=== PATIENT | female | born 1940 | race Caucasian/White ===

== ENCOUNTER 2016-11-01 07:57 | Day surgery (SDC) | payer MEDICARE, OTHER ==
[~2016-11-01] VITALS: Ht 154.9 cm; Wt 74.4 kg
--- NOTE | 2016-11-01 07:21 | PCM.HPANE ---
Patient Data Surgeon Admitting Provider: Attending Provider:Ton Mcguire MD Primary Care Physician:Steven Hurd MD Other Provider:Zeeshan Galloway Anesthesia Reason for Visit End Stage Renal Failure Ht/WT & BMI Height (Feet): 5 Height (Inches): 1 Weight (Kilograms): 73.164 Body Mass Index 30.00 Allergies Coded Allergies: No Known Allergies (Verified , 10/27/16) Past Anesthesia History Anesthesia History: Denies:: Anesthesia Reactions, Malignant Hyperthermia Diabetes History Hx Diabetes?: Yes Type of Diabetes: Type II Glycemic Control: Oral Medication MRSA MRSA: No Medications Hypertension Medication: Yes (SPIRONALACTONE) Active Scripts Sevelamer Carbonate (Renvela)800 Mg Chmwmi105 Mg PO TID 90 Days Prov:Quinton Jones DO 07/27/16 Vit B Cmplx 3/FA/Vit C/Biotin (Nephro-Valentina Rx)1 Each Tablet1 Tablet PO DAILY # 30 Prov:Quinton Jones DO 07/27/16 Reported Medications Levothyroxine 75 Mcg Qlxkid30 Mcg PO DAILY #30 11/01/16 Carvedilol 12.5 Mg Roywqs85.5 Mg PO BID #60 11/01/16 Discontinued Reported Medications Spironolactone 25 Mg Nfbsub54 Mg PO DAILY #30 TABLET Ref 0 10/27/16 Sodium Bicarbonate 650 Mg Sprdfr717 Mg PO TID 10/27/16 Furosemide (Lasix)20 Mg Yjaxdo93 Mg PO DAILY 30 Days Ref 0 10/27/16 Carvedilol 12.5 Mg Tablet6.25 Mg PO BID Ref 0 08/11/16 Glipizide 5 Mg Tablet2.5 Mg PO BIDWM 07/22/16 Sennosides (Senna)8.6 Mg Tablet8.6 Mg PO BID 08/11/16 Polyethylene Glycol 3350 (Miralax)17 Gm Powd.pack17 Gm PO BID 08/11/16 Losartan Potassium 25 Mg Fottel17 Mg PO DAILY 08/11/16 Discontinued Scripts Levothyroxine 50 Mcg Zuehbd23 Mcg PO 0630 30 Days Ref 6 Prov:Sandeep Chase MD 05/10/16 Sodium Bicarbonate 325 Mg Bqjpff603 Mg PO TID #90 TABLET Ref 6 Prov:Sandeep Chase MD 05/10/16 Citalopram Hydrobromide (Celexa)20 Mg Ovogda06 Mg PO DAILY #30 TABLET Ref 3 Prov:Sandeep Chase MD 05/10/16 History History of ENT Problems?: Yes HEENT History: Positive for:: Cataracts (S/P EXTRACTION) Denies:: Dysphagia Sinus Problem Hx of Heart Problems?: Yes Cardiovascular History: Positive for:: Atrial Fibrillation (12/2007) Congestive Heart Failure (CARDIOMYOPATHY) Hypertension Irregular Heartbeat (corrected itself per pt.) Valvular 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) Denies:: Cardiac Surgery Chest Pain Edema Heart Murmur (ECHO 06/2016 EF 30-35%) Pacemaker Other Cardiac History: ANEMIA OF CHRONIC DISEASE Hx of Respiratory Problem?: Yes Respiratory History: Positive for:: Dyspnea Pneumonia (HCAP 06/2016) Denies:: Asthma COPD Chest Surgery Emphysema Hemoptysis Tuberculosis Use of C-PAP Machine Hx Neurologic Problems?: Yes Neurological History: Positive for:: Dementia (multi-infract dementia, without behavioral disturbance) Denies:: Alzheimer's Disease CVA Dizziness Headaches Parkinson's Disease Seizures Hx of GI Problems?: No Gastrointestinal History: Denies:: Diverticulitis Gastrointestinal Bleeding Heartburn Hepatitis Hiatal Hernia Rectal Bleeding Hx of Problems?: Yes Genitourinary History: Positive for:: HX of Hemodialysis (ESRD ON DIALYSIS VIA TUNNELED CATH ESRD/DIALYSIS ACCESS=CURRENT PROBLEM) Urinary Tract Infection (HX OF) Denies:: Kidney Stones Female Hx: Denies:: Currently Endometriosis Pelvic Inflammatory Problems with Breasts? Skin History: Denies:: History Skin Disorders? Pressure Ulcers Hx Musculoskeletal Problems?: No Musculoskeletal History: Denies:: Back Injury Joint Replacement Musculoskeletal Trauma Hx of Psycho/Social Problems?: Yes Psycho Social History: Positive for:: Anxiety Hx Depression Denies:: Bipolar Disorder Suicide Attempt Hx Surgeries?: Yes (CATARACT,TUNNELED IJ CATH) Hx Any Other Health Problems?: Yes Other History: Positive for:: Hospitalization (irregular heart beat) Thyroid Disease (hypothyroidism) Denies:: Cancer Endocrine Disease History Blood Transfusions: Denies:: Blood Transfuse Reaction Blood Transfusions Hx Diabetes: Yes Hx Alcohol Use: NoHx Substance Use: No Smoking Status: Never Smoker Have You Smoked inLast 12 mo: No Stop/Bang S-Snoring: Do You Snore Loudly: No T-Tired: feel tired, fatigued: Yes O-Obsered: Observed not breath: No P-Blood Pressure: treated: Yes B- Body Mass Index > 35 kg/m2: No A- Age over 50: Yes N- Neck Large Circumference: No G- Gender Male: No ANNE Total Score: 3 Risk Assessment Category Category 1A: Patient has history of documented sleep apnea, and HAS NOT received any narcotic, sedative or anesthesia administration during this stay. Category 1B: Patient has history of documented sleep apnea, and HAS received any narcotic , sedative or anesthesia administration during this stay Category 2: Patient has SUSPECTED Obstructive Sleep Apnea, and HAS received any narcotic , sedative or anesthesia administration during this stay. Category 3: Patient has SUSPECTED Obstructive Sleep Apnea and HAS NOT received narcotic, sedative or anesthesia administration during this stay. Category 4: Outpatient in Procedural Areas with known sleep apnea or who screen positive for High Risk via the STOP/BANG questionnaire. Exam Exam General Appearance: Alert, Oriented X3 (poor historian), Cooperative HEENT/AIRWAY: MP 2, Neck Movement (from), Mouth Opening (No upper teeth, some lower teeth, opening: WNL) Lungs: Clear to Auscultation Heart: Exam Unremarkable Plan Impression Patient chart reviewed, patient interviewed and anesthestic plan with risks, benefits, and alternatives discussed, and informed consent obtained. ASA Physical Status: ASA3 Severe Disease Anesthetic Plan: GA Bene/Risks/Altern/Consents: Yes HP Complete Prior to Induction: Yes Yonas Terrell MD Nov 01, 2016 07:21
[~2016-11-01 07:57] MED LIST: CITA20TA PO; CeFAZolin 2 Gm/50 mL D5W IV Premix IV ONE; LEVO50TA6 PO; Lactated Ringer's 1,000 ML IV ONE; SEVE800T7 PO; SODI325T PO; SODI650T PO; SPIR25TA3 PO; VIT1TABL50 PO
[2016-11-01] MEDS ORDERED: Propofol 10,000 mCg/mL 20 mL Inj ONE (07:58)
[2016-11-01] MEDS ORDERED: fentaNYL-PF 50 mCg/mL 2 mL Inj ONE (07:58)
[2016-11-01] MEDS ORDERED: 0.9% Sodium Chloride 500 ML IV ONE (08:09)
[2016-11-01] MEDS ORDERED: CARV12.52 PO (08:14)
[2016-11-01] MEDS ORDERED: LEVO75TA4 PO (08:15)
[2016-11-01 08:26] VITALS: BP 158/55; PULSE 60; RESP 16; O2SAT 95
[2016-11-01] MEDS ORDERED: Insulin LISPRO 300 Unit/3 mL Inj SUBQ ONE ×2 (09:11→09:35)
[2016-11-01] MEDS ORDERED: Lactated Ringer's 1,000 ML IV SCH (09:52)
[2016-11-01] MEDS ORDERED: Lactated Ringer's 500 ML IV PRN (09:52)
[2016-11-01] MEDS ORDERED: hydrALAZINE 20 mg/mL Inj IVPUSH PRN (09:55)
[2016-11-01] MEDS ORDERED: fentaNYL-PF 50 mCg/mL 2 mL Inj IVPUSH PRN (09:55)
[2016-11-01] MEDS ORDERED: Atropine 0.4 mg/mL Inj IVPUSH PRN (09:55)
[2016-11-01] MEDS ORDERED: Labetalol 5 mg/mL 4 mL Inj IV PRN (09:55)
[2016-11-01] MEDS ORDERED: HYDROmorphone 1 mg/mL Inj IVPUSH PRN (09:55)
[2016-11-01] MEDS ORDERED: Phenylephrine 10,000 mCg/mL Inj IVPUSH PRN (09:55)
[2016-11-01] MEDS ORDERED: Ondansetron 2 mg/mL 2 mL Inj IVPUSH PRN (09:55)
[2016-11-01] MEDS ORDERED: EPHEDrine Sulfate 50 mg/mL Inj IVPUSH PRN (09:55)
[2016-11-01] MEDS ORDERED: Lidocaine PF 1% 30 mL Inj INJ ONE (10:18)
[2016-11-01] MEDS ORDERED: Bupivacaine-MPF 0.5% 30 mL Inj INFILTRATE ONE (10:18)
[2016-11-01] MEDS ORDERED: Heparin 5,000 Unit/mL Inj IR ONE (10:18)
[2016-11-01 11:34] VITALS: BP 99/44; PULSE 61; RESP 14; O2SAT 93
--- NOTE | 2016-11-01 12:01 | PCM.ANEP1 ---
Post Anesthesia Phase 1 PACU Phase 1 Assessment Vital Signs Vital Signs Date Time Temp Pulse Resp B/P Pulse Ox O2 Delivery O2 Flow Rate FiO2 11/01/16 11:34 36.0 61 14 99/44 93 Room Air 11/01/16 08:30 Supplement Oxygen 11/01/16 08:26 36.2 60 16 158/55 95 Room Air Anesthetic Administered: MAC Level of Alertness: Awake, talking MONTELONGO's with Equal Strength: Yes Pain: No Nausea or Vomiting: No Oxygen Delivery: Room Air Lungs: Normal Air Movement Yonas Terrell MD Nov 01, 2016 12:01
[2016-11-01 12:11] VITALS: BP 141/49; PULSE 55; RESP 14; O2SAT 98
[2016-11-01] MEDS ORDERED: HYDROcodone-APAP 5-325 mg Tablet PO PRN (12:15)
[2016-11-01] MEDS ORDERED: Insulin LISPRO 300 Unit/3 mL Inj ONE (13:46)
--- NOTE | 2016-11-01 14:17 | OP ---
[address] [address] OPERATIVE REPORT PATIENT: PEDRO DAY : 1940 MR#: [id number] ADMIT: 11/01/2016 JOB ID: [id number] DATE OF SURGERY: 11/01/2016 PREOPERATIVE DIAGNOSIS(ES): End-stage renal failure. POSTOPERATIVE DIAGNOSIS(ES): End-stage renal failure. PROCEDURE: Right brachiocephalic arteriovenous fistula. SURGEON: Ton Mcguire MD. GROUP SALES REPRESENTATIVE: Prasanna Mock PA-C. INDICATIONS: A 76-year-old female who has end-stage renal failure who is being dialyzed through a tunneled catheter. She is right-handed. She has never had a previous fistula or graft. Her bilateral upper extremity venous and arterial duplex exam demonstrated no significance of significant arterial disease. However, she had small forearm veins bilaterally, and by size, her upper arm veins also were inadequate but her best veins were in her right upper arm and it was elected to proceed with either a right brachiocephalic or brachial basilic AV fistula. FINDINGS: In the antecubital fossa the cephalic vein was of adequate size. At the conclusion of the procedure, she had an easily palpable thrill in the vein and a three-component Doppler signal in her right radial artery. DESCRIPTION OF PROCEDURE: At the beginning and end of the operation, SCOAP checklist was completed. She received deep sedation and local anesthesia with 1% lidocaine and 0.5% bupivacaine. Using ChloraPrep, her right upper extremity was prepped and draped in usual fashion. An antecubital incision was designed and incised. With sharp dissection the cephalic vein, which was right around 3 mm, was exposed and distally there was a branch point. The brachial artery was then exposed and controlled proximally and distally with vessel loops and side branches clipped. The vein was divided beyond its distal branch point with applying double clips distally. It was sharply incised. The two branches were opened to create a common lumen and the vein was flushed with heparinized saline and there was no resistance to flushing. The artery was then opened and flushed proximally and distally with heparinized saline. The distal end of the vein was then fashioned to create a good, and the anastomosis was completed with running 6-0 Prolene sutures. After completing the anastomosis, the artery was backflushed into the vein, followed by forward flushing into the vein and then forward flow to the hand with results as stated above. There was an easily appreciable thrill. There was no bleeding from the anastomosis or from the operative wound. The wound was closed with running subcutaneous 3-0 Vicryl, subcuticular 4-0 and Dermabond. Estimated blood loss 10 cc. No apparent complications. The final sponge, needle and instrument counts were announced as correct. The patient was returned to the recovery room in stable condition. Critical assistance was provided by Prasanna Mock PA-C.
--- NOTE | 2016-11-01 14:47 | PCM.ANEP2 ---
Post Anesthesia Evaluation ASA/CMS Post Anesthesia VS in Patient's Normal Range?: Yes Resp Stable; Airway Patent?: Yes CV Function & Hydration Stable: Yes Mental Status Recovered?: Yes Pain control Satisfactory?: Yes N/V Control Satisfactory?: Yes Yonas Terrell MD Nov 01, 2016 14:47
[2017-01-31] MEDS ORDERED: ERGO2000 PO (17:09)
[2017-01-31] MEDS ORDERED: LEVO50CA2 PO (17:09)
== END 2016-11-01 23:59 | disposition home or self-care (01) ==
LOC: SAS 07:57
PROVIDERS: ATTEND Surgery
DX: N18.6 End stage renal disease (principal); I13.2 Hypertensive heart and chronic kidney disease with heart failure and with stage 5 chronic kidney disease, or end stage renal disease; I50.23 Acute on chronic systolic (congestive) heart failure; E03.9 Hypothyroidism, unspecified; E11.21 Type 2 diabetes mellitus with diabetic nephropathy; F32.9 Major depressive disorder, single episode, unspecified; D64.9 Anemia, unspecified; F01.50 Vascular dementia, unspecified severity, without behavioral disturbance, psychotic disturbance, mood disturbance, and anxiety; I42.9 Cardiomyopathy, unspecified; Z79.84 Long term (current) use of oral hypoglycemic drugs; Z99.2 Dependence on renal dialysis
CPT/HCPCS: 36415; 36818; 84132; J0690; J1644; J1815; J2250; J7030

== ENCOUNTER 2016-11-11 08:04 | Day surgery (SDC) | payer MEDICARE, OTHER ==
[~2016-11-11] VITALS: Ht 154.9 cm; Wt 75.0 kg
[~2016-11-11 08:04] MED LIST changes: +CARV12.52 PO; -CITA20TA PO; -CeFAZolin 2 Gm/50 mL D5W IV Premix IV ONE; -LEVO50TA6 PO; +LEVO75TA4 PO; -Lactated Ringer's 1,000 ML IV ONE; -SODI325T PO; -SODI650T PO; -SPIR25TA3 PO
[2016-11-11 08:36] LABS: BASOPHILS % (AUTO) 0.3 % (0-3); EOSINOPHILS % (AUTO) 7.4 % (0-5); MONOCYTES % (AUTO) 7.1 % (4-12); Mean Corpuscular Hemoglobin 31.6 pg (27.0-35.0); Mean Corpuscular Volume 97.5 fL (81-100); NEUTROPHILS % (AUTO) 64.2 % (40-74); Platelet Count 154 bil/L (150-400)
[2016-11-11 08:45] VITALS: BP 146/42; PULSE 70; RESP 19; O2SAT 95
[2016-11-11 08:59] LABS: INR 0.97 ratio
[2016-11-11] MEDS ORDERED: CeFAZolin 2 Gm/50 mL D5W Duplex Bag IV ONE ×2 (09:12→09:13)
[2016-11-11] MEDS ORDERED: 0.9% Sodium Chloride 500 ML ONE (09:12)
[2016-11-11] MEDS ORDERED: Heparin 1,000 Unit/mL 10 mL Inj ONE (10:11)
[2016-11-11] MEDS ORDERED: Heparin 5,000 Units/500 mL NS Premix IV ONE (10:11)
[2016-11-11] MEDS ORDERED: fentaNYL-PF 50 mCg/mL 2 mL Inj ONE (10:21)
[2016-11-11 11:00] VITALS: BP 121/48; PULSE 65; RESP 18; RESP 19; O2SAT 94
[2016-11-11 11:15] VITALS: BP 132/45; PULSE 61; PULSE 65; RESP 18; RESP 19; O2SAT 94
[2016-11-11 11:30] VITALS: BP 144/47; PULSE 60; PULSE 65; RESP 18; RESP 19; O2SAT 94
[2016-11-11 12:00] VITALS: BP 147/48; PULSE 59; RESP 18; RESP 19; O2SAT 94
[2016-11-11 12:30] VITALS: BP_SYST 164; BP_SYST 167; BP_DIAS 48; PULSE 60; RESP 18; RESP 19; O2SAT 94
--- NOTE | 2016-11-11 12:59 | NUR ---
DIALYSIS TUNNELED CATHETER DRESSING REINFORCED, NO BLEEDING NOTED FROM ENTRY SITE. DISCHARGE INSTRUCTIONS REVIEWED WITH PATIENT AND SHE IS DISCHARGED AMBULATORY USING HER WALKER, ORANGE JUICE SHE WAITS FOR HER DAUGHTER IN THE WAITING ROOM.
--- NOTE | 2016-11-11 16:53 | DRSVH ---
PROCEDURE: CV REPLACE CATH TUNLD 1. Conscious sedation for 30 minutes. 2. Right internal jugular vein tunneled hemodialysis catheter replacement. 3. Fluoroscopic guidance for catheter placement. INDICATIONS: ESRD TECHNIQUE: The indications, alternatives, benefits, risks, and complications of the procedure were e xplained to the patient and any family members present. Informed written consent was obtained and pl aced in the chart. The patient was brought to the angiography suite, and conscious sedation was admi nistered intravenously by half-way staff, while continuous cardiorespiratory monitoring was pe rformed. Maximum sterile barrier technique was employed per standard protocol, including hand hygiene, cap, ma sk, sterile gown and gloves, and 2% chlorhexidine. . 1% lidocaine was used for local anaesthesia. Under fluoroscopic guidance, 2 Glidewire were advanced with the tip in the IVC. Blunt dissection was used to remove the existing hemodialysis catheter. A ne w catheter was advanced with the tip in the right atrium. Adequate flow was obtained through both lum ens of the catheter. The catheter was fastened to the skin with Ticron. Both lumens were flushed wit h heparinized saline. The patient tolerated the procedure without difficulty and was in stable condition at the conclusion of the procedure. COMPARISON: [facility], XA, CV REPLACE CATH ARMINDALD, 08/11/2016, 12:13. FINDINGS: Final spot fluoroscopic image (which was not saved) demonstrates a right internal jugular vein hemodi alysis catheter with the tip in the right atrium. IMPRESSION: Right internal jugular vein tunneled hemodialysis replacement using fluoroscopic guidance. Dictated by: Salud Ward M.D. on 11/11/2016 at 16:52 Approved by: Salud Ward M.D. on 11/11/2016 at 16:52
[2017-01-31] MEDS ORDERED: ERGO2000 PO (17:09)
[2017-01-31] MEDS ORDERED: LEVO50CA2 PO (17:09)
== END 2016-11-11 23:59 | disposition home or self-care (01) ==
LOC: SOUO 08:04
PROVIDERS: ATTEND Radiology Vascular & Interventional Radiology
DX: Z49.01 Encounter for fitting and adjustment of extracorporeal dialysis catheter (principal); I13.2 Hypertensive heart and chronic kidney disease with heart failure and with stage 5 chronic kidney disease, or end stage renal disease; E11.22 Type 2 diabetes mellitus with diabetic chronic kidney disease; E11.21 Type 2 diabetes mellitus with diabetic nephropathy; N18.6 End stage renal disease; I50.22 Chronic systolic (congestive) heart failure; F01.50 Vascular dementia, unspecified severity, without behavioral disturbance, psychotic disturbance, mood disturbance, and anxiety; Z79.84 Long term (current) use of oral hypoglycemic drugs
CPT/HCPCS: 36415; 36581; 77001; 80048; 85025; 85610; 99152; 99153; C1750; C1769; J1644; J2250; J3010

== ENCOUNTER 2016-12-13 01:08 | Day surgery (SDC) | payer MEDICARE, OTHER ==
[~2016-12-13] VITALS: Ht 154.9 cm; Wt 75.0 kg
[~2016-12-13 01:08] MED LIST changes: -CARV12.52 PO
[2016-12-13] MEDS ORDERED: FURO40TA4 PO (09:08)
[2016-12-13] MEDS ORDERED: CITA20TA11 PO (09:08)
[2016-12-13] MEDS ORDERED: CARV6.252 PO (09:08)
[2016-12-13] MEDS ORDERED: GLIP2.5T2 PO (09:09)
[2016-12-13] MEDS ORDERED: SPIR25TA3 PO (09:11)
[2016-12-13] MEDS ORDERED: CINA30TA PO (09:11)
[2016-12-13] MEDS ORDERED: SODI650T PO (09:11)
[2016-12-13] MEDS ORDERED: LEVO50CA2 PO (09:11)
[2016-12-13 09:30] VITALS: BP 181/58; PULSE 69; RESP 16; O2SAT 97
--- NOTE | 2016-12-13 09:30 | NUR ---
ADMISSION NOTE FEMALE PT ADMITTED FOR TUNNEL CATH EXCHANGE. DISCUSSED PLAN OF CARE WITH PT . SEE ADMIT AND FLOW SHEET
[2016-12-13 10:21] LABS: INR 0.95 ratio
[2016-12-13] MEDS ORDERED: 0.9% Sodium Chloride 1,000 ML ONE (10:35)
[2016-12-13] MEDS ORDERED: CeFAZolin 1 Gm/50 mL D5W Duplex Bag IV ONE (10:46)
[2016-12-13] MEDS ORDERED: fentaNYL-PF 50 mCg/mL 2 mL Inj ONE (11:19)
[2016-12-13] MEDS ORDERED: Heparin 5,000 Units/500 mL NS Premix IV ONE (11:19)
[2016-12-13] MEDS ORDERED: Heparin 1,000 Unit/mL 10 mL Inj ONE (11:39)
[2016-12-13 12:00] VITALS: BP 151/39; PULSE 64; RESP 14; O2SAT 94
--- NOTE | 2016-12-13 12:00 | NUR ---
POST PROCEDURE NOTE RETURNED FROM MARZIPAN MOLDER. SEE FLOW SHEET
[2016-12-13 12:15] VITALS: BP 139/40; PULSE 68; RESP 16; O2SAT 92
[2016-12-13 12:30] VITALS: BP 165/47; PULSE 64; RESP 18; O2SAT 98
--- NOTE | 2016-12-13 12:45 | NUR ---
DISCHARGE NOTE TO DIALYSIS PER ORDERS. SITE STABLE. INSTRUCTIONS GIVEN
--- NOTE | 2016-12-13 15:00 | NUR ---
DISCHARGE NOTE UP IN ROOM. GROIN TENDER, NO BLEEDING OR CHANGES NOTED. INSTRUCTIONS GIVEN. HOME WITH SISTER Addendum: 12/13/16 at 1600 by BRENDA HO RN DISREGUARD. INCORRECT PATIENT
--- NOTE | 2016-12-13 17:03 | DRSVH ---
PROCEDURE: CV REPLACE CATH RAMON 1. Conscious sedation for 8 minutes. 2. Right internal jugular vein tunneled hemodialysis catheter exchange. 3. Fluoroscopic guidance for catheter placement. INDICATIONS: MALFUNCTIONING TUNNEL CATH TECHNIQUE: The indications, alternatives, benefits, risks, and complications of the procedure were e xplained to the patient and any family members present. Informed written consent was obtained and pl aced in the chart. The patient was brought to the angiography suite, and conscious sedation was admi nistered intravenously by [facility] staff, while continuous cardiorespiratory monitoring was pe rformed. Maximum sterile barrier technique was employed per standard protocol, including hand hygiene, cap, ma sk, sterile gown and gloves, and 2% chlorhexidine. Sterile ultrasound probe cover was also utilized. A stiff Glidewire was advanced into the current tunneled dialysis catheter. The catheter was removed over the wire and exchanged for a new catheter with the tip placed at the cavoatrial junctionAdequate flow was obtained through both lumens of the catheter. The venotomy was closed with Vicryl, and the catheter was fastened to the skin with Ticron. Both lumens were flushed with heparinized saline. The patient tolerated the procedure without difficulty and was in stable condition at the conclusion of the procedure. COMPARISON: [facility], XA, CV REPLACE CATH ARMINDA, 11/11/2016, 9:25. FINDINGS: Fluoroscopic imaging demonstrates tip of the catheter at the cavoatrial junction. IMPRESSION: Right internal jugular vein tunneled hemodialysis catheter exchange using fluoroscopic guidance. Dictated by: Jeni Delgado M.D. on 12/13/2016 at 17:00 Approved by: Jeni Delgado M.D. on 12/13/2016 at 17:02
[2017-01-31] MEDS ORDERED: ERGO2000 PO (17:09)
[2017-01-31] MEDS ORDERED: LEVO50CA2 PO (17:09)
== END 2016-12-13 23:59 | disposition home or self-care (01) ==
LOC: SOUO 01:08
PROVIDERS: ATTEND Radiology Neuroradiology
DX: T82.41XA Breakdown (mechanical) of vascular dialysis catheter, initial encounter (principal); E11.21 Type 2 diabetes mellitus with diabetic nephropathy; E11.22 Type 2 diabetes mellitus with diabetic chronic kidney disease; I12.0 Hypertensive chronic kidney disease with stage 5 chronic kidney disease or end stage renal disease; N18.6 End stage renal disease; F01.50 Vascular dementia, unspecified severity, without behavioral disturbance, psychotic disturbance, mood disturbance, and anxiety; I42.9 Cardiomyopathy, unspecified; Z99.2 Dependence on renal dialysis; Z79.84 Long term (current) use of oral hypoglycemic drugs; I50.22 Chronic systolic (congestive) heart failure
CPT/HCPCS: 36415; 36581; 77001; 85610; 99152; C1750; C1769; J1644; J2250; J3010

== ENCOUNTER 2016-12-27 15:38 | Emergency (ER) | payer MEDICARE, OTHER ==
[~2016-12-27] VITALS: Ht 154.9 cm; Wt 55.0 kg
[~2016-12-27 15:38] MED LIST changes: +CARV6.252 PO; +CINA30TA PO; +CITA20TA11 PO; +FURO40TA4 PO; +GLIP2.5T2 PO; +LEVO50CA2 PO; +SODI650T PO; +SPIR25TA3 PO
[2016-12-27 15:52] VITALS: BP 130/49; PULSE 65; RESP 18; O2SAT 98
[2016-12-27] MEDS ORDERED: 0.9% Sodium Chloride 500 ML IV ONE (16:40)
[2016-12-27 16:46] LABS: BASOPHILS % (AUTO) 0.3 % (0-3); EOSINOPHILS % (AUTO) 4.7 % (0-5); MONOCYTES % (AUTO) 8.3 % (4-12); Mean Corpuscular Hemoglobin 32.5 pg (27.0-35.0); Mean Corpuscular Volume 99.7 fL (81-100); NEUTROPHILS % (AUTO) 66.1 % (40-74); Platelet Count 178 bil/L (150-400)
[2016-12-27] MEDS: Ondansetron 2 mg/mL 2 mL Inj IV PRN ×2 (16:59→17:00)
[2016-12-27 17:02] LABS: INR 1.03 ratio
[2016-12-27 17:07] LABS: Magnesium 1.6 mg/dL (1.6-2.6)
--- NOTE | 2016-12-27 18:21 | ED.REPORT ---
HPI-General Illness Date of Service Dec 27, 2016 ED Provider: Cliff Ruiz MD A 76 year old female with a medical history including diabetes, CHF, hypertension, valvular heart disease, dementia, atrial fibrillation, and ESRD on hemodialysis presents to the ED after losing consciousness on the bus just prior to arrival. The patient is unsure of the length of loss of consciousness but doesn't believe it was more than "a couple of minutes." She was aroused by the substance abuse nurse, became nauseous, and immediately vomited (x1). The patient also complained of a headache at that time but all of her symptoms have resolved in the ED. She denies any chest pain, diaphoresis, shortness of breath, abdominal pain, confusion, focal weakness, or other symptoms. The patient began dialysis in 07/2016 with her most recent appointment at 1500 today. She has had similar syncopal episodes after dialysis in the past. Nursing Notes Stated Complaint: PASSED OUT Chief Complaint: General Complaint Nursing Notes Reviewed: Yes Allergies: Coded Allergies: No Known Allergies (Verified , 10/27/16) Scheduled Carvedilol (Carvedilol) 6.25 Mg Tablet 6.25 MG PO BID Cinacalcet (Sensipar) 30 Mg Tablet 30 MG PO DAILY Citalopram (Citalopram) 20 Mg Tablet 20 MG PO DAILY Furosemide (Furosemide) 40 Mg Tablet 20 MG PO DAILY Glipizide ER (Glipizide ER) 2.5 Mg Tab.er.24 2.5 MG PO BID Levothyroxine (Levothyroxine) 75 Mcg Tablet 75 MCG PO DAILY Levothyroxine (Tirosint) 50 Mcg Capsule 50 MCG PO DAILY Sevelamer Carbonate (Renvela) 800 Mg Tablet 800 MG PO TID Sodium Bicarbonate (Sodium Bicarbonate) 650 Mg Tablet 650 MG PO TID Spironolactone (Spironolactone) 25 Mg Tablet 25 MG PO DAILY Vit B Cmplx 3/FA/Vit C/Biotin (Nephro-Valentina Rx) 1 Each Tablet 1 TABLET PO DAILY General Time Seen by MD: 18:05 Chief Complaint Other (Loss of Consciousness) Hx Obtained From: Patient Arrived By: Walk-in Sudden in Onset?: Yes Onset Occurred: Just prior to arrival Symptom Duration: 1 - 15 minutes (Approximately) Location: : Head Quality: Painful Severity: Current: No pain currently Severity: Maximum: Moderate Associated with: Reports: Headache, Nausea, Vomiting, Denies: Abdominal pain, Chest pain, Fever Pertinent Negative: Relieved by nothing Context Related History: Reports Diabetes mellitus Recent Healthcare: Recent doctor visit Similar Sx Previous: Yes Past Medical History Past Medical History Notes: Past Medical History Atrial fibrillation 12/2007 Hypothyroidism Diabetes mellitus type II CHF w/ cardiomyopathy Hypertension Valvular heart disease Dementia ESRD on hemodialysis Anxiety Depression Cataracts Past Surgical History Cataract surgery Right brachiocephalic arteriovenous fistula placement Family History Noncontributory Smoking History Never Smoker Social History Alcohol Use: Denies alcohol use Drug Use: Denies drug use Other Social History: Good social support, Local resident Ambulatory Status Independent Review of Systems Full Review of Systems Constitutional: Denies: Fever Respiratory: Denies: Non-productive cough, Shortness of breath Cardiovascular: Denies: Chest pain GI: Reports: Nausea, Vomiting, Denies: Abdominal pain, Diarrhea Skin: Denies Diaphoresis Neurologic: Reports: Change LOC, Headache, Denies: Confusion, Focal weakness Complete sys rev & neg: except as marked. Physical Exam Vital Signs Vital Signs Date Time Temp Pulse Resp B/P Pulse Ox O2 Delivery O2 Flow Rate FiO2 12/27/16 20:36 37.1 65 15 143/54 95 Room Air 12/27/16 19:22 36.9 69 17 126/45 98 Nasal Cannula 2 12/27/16 15:52 36.4 65 18 130/49 98 Room Air Initial VS: Reviewed Head / Eyes: Atraumatic, Normocephalic ENT: Conjunctiva normal, No scleral icterus Cardiovascular: Regular rate & rhythm, Heart sounds normal Abdomen / GI: Soft, Non-tender Skin: Warm, Dry, No cyanosis Neurologic: Alert, Oriented, Nonfocal Psychiatric: Mood/affect normal, Behavior normal, Normal thought content General/Constitutional: Awake, Alert, No acute distress Distress / Hydration: Positive: Dehydration mild Respiratory / Chest: Breath sounds NL, Breath sounds = bilat, No respiratory distress Triple lumen in right chest Upper Extremities Upper Extremity / MS: Inspection NL, Neurologic intact, Vascular intact Fistula in right arm Lower Extremity / Pelvis / MS: Inspection NL, Neurologic intact, Vascular intact Interpretation & Diagnostics Lab Results Interpretation Result Diagram: 12/27/16 1630 12/27/16 1630 Test 12/27/16 16:30 White Blood Count 5.9th/mm3 (3.8-10.1) Red Blood Count 3.63mil/mm3 (3.90-5.20) Hemoglobin 11.8g/dL (12.0-15.6) Hematocrit 36.2% (35.0-46.0) Mean Corpuscular Volume 99.7fL (81-100) Mean Corpuscular Hemoglobin 32.5pg (27.0-35.0) Mean Corpuscular Hemoglobin Concent 32.6% (32.0-37.0) Red Cell Distribution Width 13.8% (12.3-15.4) Platelet Count 178bil/L (150-400) Neutrophils (%) (Auto) 66.1% (40-74) Lymphocytes (%) (Auto) 20.3% (14-46) Monocytes (%) (Auto) 8.3% (4-12) Eosinophils (%) (Auto) 4.7% (0-5) Basophils (%) (Auto) 0.3% (0-3) Hold Purple Top Tube Received (Received) Prothrombin Time 11.0sec (8.1-12.5) Prothromb Time International Ratio 1.03ratio Activated Partial Thromboplast Time 115.4sec (22.8-33.0) Hold Blue Top Tube Received (Received) Sodium Level 136mEq/L (134-144) Potassium Level 3.8mEq/L (3.5-5.2) Chloride Level 93mEq/L (97-108) Carbon Dioxide Level 31mmol/L (18-29) Blood Urea Nitrogen 11mg/dL (8-27) Creatinine 1.71mg/dL (0.57-1.00) Estimat Glomerular Filtration Rate 42mL/min (>59) Glucose Level 232mg/dL (60-99) Calcium Level 8.6mg/dL (8.5-10.1) Magnesium Level 1.6mg/dL (1.6-2.6) Total Bilirubin 0.4mg/dL (0.0-1.2) Aspartate Amino Transf (AST/SGOT) 27U/L (0-50) Alanine Aminotransferase (ALT/SGPT) 11U/L (0-32) Alkaline Phosphatase 65U/L (25-165) Total Protein 6.5g/dL (6.4-8.4) Albumin 3.6g/dL (3.4-5.0) Hold [place] Top Tube Received (Received) Hold [place] Top Tube Received (Received) ECG Interpretation ECG Interpretation: Sinus rhythm rate 65 Nonspecific T abnormalities, lateral leads Time: 16:56 Interpreted by: ED physician CT Head Interpretation IMPRESSION: No acute intracranial findings. Mild findings likely associated with chronic microvascular ischemic changes. Dictated by: Salud Ward M.D. on 12/27/2016 at 19:27 Study: Head CT no contrast Interpretation / Wet Read by: Interpret - Radiologist Re-Eval/Medical Decision Med Decision/Clinical Course Dialysis patient on the way home from dialysis after a couple of pounds taken off and already below her usual dry weight. She had a single blood so that appears to be orthostatic in character. She has had similar episodes in the past. No chest pain or other indicator of serious pathology. Labs are reassuring as is her EKG. She desires to go home and I can see no particular reason to keep her, she has been stable throughout her period of observation here. Discharge now stable condition. Source of Hx: Old records Time of Eval: 20:00 Re-Evaluation/Progress Note: Patient has declined chest x-ray due to previous work-up. Discussed with patient CT and lab results, diagnosis, and plan for discharge. Follow-up and return to the ER instructions given. Patient agrees with plan for care and all questions were addressed. Counseled Regarding: Diagnosis, Lab results, Need for follow-up, When/why to return to ED Discharge & Departure Primary Impression: Syncope Syncope type: unspecified Qualified Code: R55 - Syncope and collapse Additional Impression: Orthostatic hypotension Disposition: Home Discharge Condition All VS Reviewed: Yes Condition: Improved Patient Instructions: Syncope (ED) Additional Instructions: You have had a faint, apparently similar to prior episodes. We have no evidence of acute heart disease or other dangerous cause. I suspect, as you do , that it resulted from low blood pressure just post dialysis. Follow-up with your doctor in the office. Return if any immediate issues, particularly recurrent fainting spells, chest pain, palpitations, or other new symptoms of concern. Referrals: Steven Hurd MD (PCP) Scribe Attestation Portions of this note were transcribed by Iesha Oswald. I, Dr. Ruiz, personally performed the history, physical exam, and medical decision-making; I reviewed and confirmed the accuracy of the information in the transcribed note. Signed by: Nikhil Mariscal, 12/27/2016, 20:30 copies to: Steven Hurd MD, Christopher W MD Dec 27, 2016 18:21 IESHA OSWALD Dec 27, 2016 18:59
[2016-12-27 19:22] VITALS: BP 126/45; PULSE 69; RESP 17; O2SAT 98
--- NOTE | 2016-12-27 19:31 | DRSVH ---
PROCEDURE: CT BRAIN WITHOUT CONTRAST ([id number]) INDICATIONS: syncope TECHNIQUE: Noncontrast 4.5 mm thick angled axial sections acquired from the foramen magnum to the vertex, with c oronal reformats. COMPARISON: None. FINDINGS: Image quality: Excellent. CSF spaces: Basal cisterns are patent. No extra-axial fluid collections. The ventricles are symmet jose in size and shape. Brain: No intracranial bleeds or masses. There is cerebral volume loss for age, with resultant vent ricular and sulcal prominence. There are periventricular and deep white matter chronic small vessel ischemic changes. There is intracranial internal carotid artery atherosclerosis. Skull and face: Calvarium and visualized facial bones appear intact, without suspicious lesions. Sinuses: Visualized sinuses and mastoids are clear. IMPRESSION: No acute intracranial findings. Mild findings likely associated with chronic microvascula r ischemic changes. Dictated by: Salud Ward M.D. on 12/27/2016 at 19:27 Approved by: Salud Ward M.D. on 12/27/2016 at 19:29
[2016-12-27 20:36] VITALS: BP 143/54; PULSE 65; RESP 15; O2SAT 95
[2017-01-31] MEDS ORDERED: ERGO2000 PO (17:09)
[2017-01-31] MEDS ORDERED: LEVO50CA2 PO (17:09)
== END 2016-12-27 20:37 | disposition home or self-care (01) ==
LOC: SED 15:38
DX: I95.1 Orthostatic hypotension (principal); I13.2 Hypertensive heart and chronic kidney disease with heart failure and with stage 5 chronic kidney disease, or end stage renal disease; E11.59 Type 2 diabetes mellitus with other circulatory complications; I50.9 Heart failure, unspecified; I48.91 Unspecified atrial fibrillation; I42.9 Cardiomyopathy, unspecified; E11.22 Type 2 diabetes mellitus with diabetic chronic kidney disease; N18.6 End stage renal disease; F03.90 Unspecified dementia, unspecified severity, without behavioral disturbance, psychotic disturbance, mood disturbance, and anxiety; Z99.2 Dependence on renal dialysis
CPT/HCPCS: 36415; 70450; 80053; 82948; 83735; 85025; 85610; 85730; 93005; 96361; 96374; 99285; J2405; J7040

== ENCOUNTER 2017-02-01 01:26 | Day surgery (SDC) | payer MEDICARE, OTHER ==
[2017-02-01] VITALS (10 sets, daily range): BP systolic 145–171; BP diastolic 39–83; PULSE 69–82; RESP 15–18; O2SAT 93–100
[~2017-02-01] VITALS: Ht 154.9 cm; Wt 75.0 kg
[~2017-02-01 01:26] MED LIST changes: +ERGO2000 PO
[2017-02-01 10:24] LABS: BASOPHILS % (AUTO) 0.2 % (0-3); EOSINOPHILS % (AUTO) 6.3 % (0-5); MONOCYTES % (AUTO) 8.9 % (4-12); Mean Corpuscular Hemoglobin 32.1 pg (27.0-35.0); Platelet Count 171 bil/L (150-400)
[2017-02-01] MEDS ORDERED: Heparin 5,000 Units/500 mL NS Premix IV ONE (10:34)
[2017-02-01] MEDS ORDERED: Heparin 1,000 Unit/mL 10 mL Inj ONE (10:34)
[2017-02-01] MEDS ORDERED: 0.9% Sodium Chloride 1,000 ML ONE (10:35)
[2017-02-01] MEDS ORDERED: CeFAZolin Inj 2 GM in IV Premix 1 EACH IV ONE (10:50)
[2017-02-01] MEDS ORDERED: fentaNYL-PF 50 mCg/mL 2 mL Inj ONE (11:00)
--- NOTE | 2017-02-01 13:12 | DRSVH ---
PROCEDURE: FENCE POST CUTTER AV FISTULA INDICATIONS: ESRD THE MICROPUNCTURE SHEATH WAS EXCHANGED FOR A SHORT 6 FIJIAN SHEATH. [facility], , [place] DI ALYSIS SHUNT DPLX, 01/17/2017, 14:41. None. Technique: 1. Conscious sedation for 30 minutes. 2. Antegrade access of the venous outflow of the right upper extremity fistula. 3. Fistulogram performed in stations to the level of the SVC. 4. Balloon angioplasty of a mild to moderate stenosis of the central cephalic vein. 5. Completion fistulogram. 6. Sheath removal hemostasis. The indications, alternatives, benefits, risks, and complications of the procedure were explained to the patient.. Informed written consent was obtained and placed in the chart. The patient was jeison t to the angiography suite, and conscious sedation was administered intravenously by [facility] staff, while continuous cardiorespiratory monitoring was performed. Maximum sterile barrier technique was employed per standard protocol, including hand hygiene, cap, ma sk, sterile gown and gloves, and 2% chlorhexidine. One percent lidocaine was used to anesthetize the skin over the area of interest. Using a micropuncture kit, the right upper extremity venous outflow o f the fistula was accessed in an antegrade fashion. Fistulogram was performed in stations to the leve l of the SVC. Left angioplasty was performed with a 5 mm x 40 mm high-pressure balloon at a mild to m oderate stenosis at the confluence of the cephalic and axillary veins. Completion fistulogram was per formed. Reflux fistulogram of the arteriovenous anastomosis was performed. The sheath was removed, an d hemostasis was obtained. FINDINGS: Initial fistulogram demonstrates a gzcz-[id number]-qfgjewos stenosis at the central portion of the cephalic vein. There is resolution of this finding after angioplasty. The fistula is otherwise widel y patent. The arteriovenous anastomosis is widely patent. IMPRESSION: 1. Balloon angioplasty of a [id number]-cqfknvmu stenosis at the central portion of the cephalic vein. No other stenoses are visualized. Of note, there is no stenosis visualized within the venous outflow wh ich corresponds with the dialysis shunt duplex dated 01/17/17. Dictated by: Salud Ward M.D. on 02/01/2017 at 12:39 Approved by: Salud Ward M.D. on 02/01/2017 at 12:53
--- NOTE | 2017-02-01 14:04 | NUR ---
Right arm upper Purse string removed following a recovery post fistula balloon angioplasty. Fistula Thrill + patient complains of no pain - scant ooze ultra foam placed on puncture covered with clear OpSite
--- NOTE | 2017-02-01 15:58 | NUR ---
RENÉE: Fistulogram Pt arrived to [facility] around 0945. IV started without difficulty and admission completed. Pt taken to [facility] at 1050 and returned at 1140 with Purse string suture in place to right fistula. Vitals stable throughout recovery. Purse string removed at 1340 w/ mild oozing, which quickly resolved. Discharge instructions discussed; pt verbalized understanding. Pt picked up by daughter around 1500 and left in stable condition. Pt has scheduled dialysis tomorrow.
== END 2017-02-01 23:59 | disposition home or self-care (01) ==
LOC: SOUO 01:26
PROVIDERS: ATTEND Radiology Vascular & Interventional Radiology
DX: I87.1 Compression of vein (principal); I42.9 Cardiomyopathy, unspecified; I50.22 Chronic systolic (congestive) heart failure; E11.21 Type 2 diabetes mellitus with diabetic nephropathy; E11.22 Type 2 diabetes mellitus with diabetic chronic kidney disease; I12.0 Hypertensive chronic kidney disease with stage 5 chronic kidney disease or end stage renal disease; N18.6 End stage renal disease; Z99.2 Dependence on renal dialysis; Z79.84 Long term (current) use of oral hypoglycemic drugs; D63.1 Anemia in chronic kidney disease; E03.9 Hypothyroidism, unspecified
CPT/HCPCS: 36415; 36902; 80048; 85025; 99152; 99153; C1725; C1769; C1894; J1644; J2250; J3010; J7030; Q9967